=== PATIENT | male | born 1995 | race Hispanic/Latino ===

== ENCOUNTER 2017-10-09 15:37 | Emergency (ER) | payer OTHER, SELFPAY ==
[2017-10-09] MEDS ORDERED: Ondansetron HCl/PF 4 MG/2 ML Vial ONE (16:30)
[2017-10-09 16:49] LABS: Troponin I Less than 0.010 ng/mL (< 0.028)
[2017-10-09] MEDS ORDERED: predniSONE 20 MG TAB ONE (17:14)
[2017-10-09] MEDS ORDERED: Albuterol Sulfate 2.5 mg/3 ml Neb ONE (17:18)
[2017-10-09] MEDS ORDERED: Lidocaine Viscous Sol 2% 15 ml UD Cup ONE (18:18)
[2017-10-09] MEDS ORDERED: Mag-Al 1200 mg/1200 mg/30 ML UDCUP ONE (18:18)
== END 2017-10-09 18:41 | disposition home or self-care (01) ==
LOC: ERS 15:37
DX: J45.901 Unspecified asthma with (acute) exacerbation (principal); R55 Syncope and collapse
CPT/HCPCS: 36415; 93005; 94640; 96374; J2405; J7506; J7611; J7620